=== PATIENT | male | born 1985 | race Caucasian/White ===

== ENCOUNTER → 2019-11-26 10:10 | Outpatient (CLI) | payer OTHER, SELFPAY ==
--- NOTE | ~2019-11-26 | XR_ITS ---
XR thoracic spine 3V 11/26/2019 10:39 Indication: Back pain Procedure: 3 views thoracic spine Comparison: No prior studies for comparison. Findings: Normal thoracic alignment. No fracture, subluxation or dislocation. No paraspinal soft tiss ue abnormality. Surrounding osseous structures within normal limits. Impression: 1: No significant abnormality of the thoracic spine. Reviewed, dictated and finalized at location B. Impression: 1: No significant abnormality of the thoracic spine.
== END ==
PROVIDERS: PCP Nurse Practitioner; Visit Provider Nurse Practitioner
DX: M54.6 Pain in thoracic spine (principal)
CPT/HCPCS: 72072

== ENCOUNTER 2020-01-22 07:30 | Outpatient (RCR) | payer OTHER, SELFPAY ==
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
--- NOTE | 2019-12-24 07:33 | PCPTNOTE ---
Patient called & cancelled scheduled appointment this date due to being out of town.
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
== END 2020-01-22 09:33 | disposition home or self-care (01) ==
LOC: ANHPT 07:30
PROVIDERS: PCP Nurse Practitioner; Visit Provider Nurse Practitioner
DX: M54.9 Dorsalgia, unspecified (principal)
CPT/HCPCS: 97014; 97110; 97112; 97140; 97161; 97530; G0283

== ENCOUNTER → 2020-03-07 09:07 | Outpatient (CLI) | payer OTHER, SELFPAY ==
--- NOTE | ~2020-03-07 | US_ITS ---
US scrotum doppler INDICATION: Left testicular lump with pain. TECHNIQUE: Testicular sonogram utilizing grayscale and color Doppler FINDINGS: The testes are normal in size and appearance. No focal lesions are seen. The right testes measures 3.9 x 2.7 x 3.1 cm centimeters, and the left testis measures 4 x 2.3 x 2.8 cm cm. There is n ormal vascular flow to both testes. No abnormality identified in the area of palpable concern in the left testicle. The right and left epididymides appear normal. There is no varicocele or hydrocele. There is physiologic fluid surrounding the left testicle. IMPRESSION: 1. NORMAL TESTICULAR ULTRASOUND. Reviewed, dictated and finalized at location A. 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
== END ==
PROVIDERS: PCP Internal Medicine; Visit Provider Nurse Practitioner
DX: N50.812 Left testicular pain (principal)
CPT/HCPCS: 76870; 93976

== ENCOUNTER 2022-03-13 07:00 | Outpatient (NON) | payer OTHER, SELFPAY | END 2022-03-13 07:01 | disposition home or self-care (01) | PROVIDERS: PCP Internal Medicine; Visit Provider Nurse Practitioner | DX: L71.8 Other rosacea (principal); L73.8 Other specified follicular disorders; L30.8 Other specified dermatitis | CPT/HCPCS: 88305 ==